=== PATIENT | female | born 1930 | race Caucasian/White ===

== ENCOUNTER → 2016-10-06 | Outpatient (CLI) | payer OTHER ==
[~2016-10-06] MED LIST: ANT125 PO; ATV5 SL; CALC-416 PO; CIPR-255 PO; GLIP10TA9 PO; MULT-589 PO; OCTR30KI6 IM; PANT1TAB48 PO; PRT/40 PO; SCOP1DIS14 TD; ULT50X PO; ZCR80 PO; [UNRECOGNIZED DRUG - CODE] SL
[2016-10-06 09:46] LABS: BASO % 0.2 %; BASO ABS # 0.02 K/uL (0-0.2); COMPLETE YES; EOS % 2.5 %; HEMATOCRIT 44.8 % (37-47); IG% 0.1 %; LYMPH % 32.8 %; LYMPH ABS # 2.94 K/uL (1.2-3.4); MEAN CELL VOLUME 99.1 fL (80-100); MEAN CORPUSCULAR HEMOGLOBIN 33.4 pg (25-34); MEAN CORPUSCULAR HGB CONC 33.7 g/dl (32-36); MEAN PLATELET VOLUME 10.9 fL (7.4-10.4); MONO % 5.8 %; NEUT % 58.6 %; PLATELET COUNT 152 K/uL (130-400); RED BLOOD COUNT 4.52 M/uL (4.2-5.4); WHITE BLOOD COUNT 8.95 K/uL (4.8-10.8)
[2016-10-06 10:10] LABS: ALT/SGPT 16 U/L (12-78); AST/SGOT 19 U/L (15-37); BLOOD UREA NITROGEN 17 mg/dl (7-18); BUN/CREATININE RATIO 17.1 (10-20); CALCIUM 8.8 mg/dl (8.5-10.1); CARBON DIOXIDE 29 mmol/L (21-32); CHLORIDE 105 mmol/L (98-107); GLUCOSE 62 mg/dl (70-99); POTASSIUM 3.4 mmol/L (3.5-5.1); SODIUM 144 mmol/L (136-145)
[2016-10-06 10:12] LABS: ESTIMATED AVERAGE GLUCOSE 128 mg/dl; HA1C FLAG Normal (Normal)
[2016-10-06 10:21] LABS: CHOLESTEROL 141 mg/dl (0-200); HDL CHOLESTEROL 71 mg/dl; LDL CHOLESTEROL CALCULATED 45 mg/dl; TRIGLYCERIDES 123 mg/dl (0-150); VERY LOW DENSITY LIPOPROT CALC 25 mg/dl
== END | disposition home or self-care (01) ==
LOC: C.LAB1850 08:00
PROVIDERS: ATTEND Internal Medicine
DX: E78.00 Pure hypercholesterolemia, unspecified (principal); E11.9 Type 2 diabetes mellitus without complications

== ENCOUNTER 2017-01-10 19:20 | Inpatient (IN) | payer OTHER ==
[~2017-01-10 19:20] MED LIST changes: -ATV5 SL; -OCTR30KI6 IM; +PANT40TA2 PO; -PRT/40 PO; -SCOP1DIS14 TD; +SNDI30 IM; -[UNRECOGNIZED DRUG - CODE] SL
[2017-01-10] MEDS ORDERED: SODIUM CHLORIDE 0.9% 1000ML 1,000 ML IV STA ×2 (20:15→21:08)
[2017-01-10 20:31] LABS: BASO % 0.1 %; BASO ABS # 0.01 K/uL (0-0.2); COMPLETE YES; HEMATOCRIT 39.7 % (37-47); IG% 0.4 %; LYMPH % 7.8 %; LYMPH ABS # 1.23 K/uL (1.2-3.4); MEAN CELL VOLUME 98.3 fL (80-100); MEAN CORPUSCULAR HEMOGLOBIN 33.7 pg (25-34); MEAN CORPUSCULAR HGB CONC 34.3 g/dl (32-36); MEAN PLATELET VOLUME 10.5 fL (7.4-10.4); MONO % 6.9 %; NEUT % 84.8 %; PLATELET COUNT 173 K/uL (130-400); RED BLOOD COUNT 4.04 M/uL (4.2-5.4); WHITE BLOOD COUNT 15.87 K/uL (4.8-10.8)
[2017-01-10 20:39] LABS: ALT/SGPT 150 U/L (12-78); AST/SGOT 101 U/L (15-37); BLOOD UREA NITROGEN 27 mg/dl (7-18); BUN/CREATININE RATIO 30.2 (10-20); CALCIUM 8.5 mg/dl (8.5-10.1); CARBON DIOXIDE 21 mmol/L (21-32); CHLORIDE 103 mmol/L (98-107); CREATININE 0.88 mg/dl (0.60-1.20); GLUCOSE 193 mg/dl (70-99); POTASSIUM 3.4 mmol/L (3.5-5.1); SODIUM 142 mmol/L (136-145)
[2017-01-10 20:41] LABS: INR 1.1 (0.9-1.1); PARTIAL THROMBOPLASTIN RATIO 1.3
[2017-01-10 20:47] LABS: URINE APPEARANCE CLEAR (CLEAR); URINE COLOR DK YELLOW; URINE EPITHELIAL CELL AUTO >30 /lpf (0-5); URINE NITRITE NEG (NEG); URINE PH 5.5 (4.5-7.5); URINE SPECIFIC GRAVITY 1.029 (1.000-1.030); UROBILINOGEN NEG (NEG); ZZURINE CULT IF INDIC CATH YES
[2017-01-10 20:50] LABS: MANUAL MICROSCOPIC REQUIRED? NO; REVIEW REQ? NO
[2017-01-10 20:51] LABS: URINE BILIRUBIN NEG (NEG)
[2017-01-10 20:51] LABS: ALKALINE PHOSPHATASE 297 U/L (45-117)
[2017-01-10] MEDS ORDERED: PIPERACILLIN/TAZOBACTAM 3.375 GM/100ML D5W IV STA (21:08)
--- NOTE | 2017-01-10 21:10 | DIAGNOSTIC IMAGING REPORT ---
CT OF THE HEAD WITHOUT CONTRAST CLINICAL HISTORY: Altered mental status. COMPARISON STUDY: Head CT April 23, 2015. CT DOSE: 1842.80 mGy.cm TECHNIQUE: Helical axial images of the head were obtained without IV contrast. Automated exposure control was utilized for the study. FINDINGS: No acute intracranial hemorrhage is present. There is extensive hypodensity with loss of zambrano-white differentiation within the right temporal, frontal and parietal lobes which suggests a large right MCA infarct. In addition, there is hypodensity within the right caudate nucleus. This is likely subacute to acute. There is minimal mass effect. 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 Basilar cisterns are patent. There are no extra-axial collections. There are no significant calvarial abnormalities. Small amount of fluid within the right mastoid air cells is noted. 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 No acute hemorrhage. Minimal mass effect. Findings discussed with Dr. Gallo at time of dictation. Electronically signed by: Alexi Angel M.D. 01/10/2017 9:08 PM Dictated Date/Time: 01/10/2017 8:58 PM
--- NOTE | 2017-01-10 21:12 | DIAGNOSTIC IMAGING REPORT ---
CHEST ONE VIEW PORTABLE CLINICAL HISTORY: Sepsis. Altered mental status. COMPARISON STUDY: Chest radiograph April 09, 2015. FINDINGS: Calcified right apical nodule is noted. Patient is rotated. Right perihilar masslike opacity is present. There is also left perihilar opacity. Diffuse interstitial thickening is noted. There is no pneumothorax or pleural effusion. IMPRESSION: 1. Right perihilar mass-like opacity. Given the clinical history, this could reflect pneumonia however a mass or lymphadenopathy could appear similar. Short-term radiographic follow up is recommended. 2. Suspected left perihilar opacity which can be assessed on subsequent chest radiographs. 3. Mild interstitial thickening. This could reflect mild pulmonary edema or interstitial lung disease. Electronically signed by: Alexi Angel M.D. 01/10/2017 9:11 PM Dictated Date/Time: 01/10/2017 9:09 PM
--- NOTE | 2017-01-10 21:37 | EMERGENCY ROOM VISIT NOTE ---
History Report prepared by Luz: Jass Sherman Under the Supervision of: Dr. Carlos Gallo M.D. First contact with patient: 20:02 Chief Complaint: ALTERED MENTAL STATUS Stated Complaint: SEPSIS Nursing Triage Summary: pt brought to main ED C12b by ALS from home where she lives alone and is checked on by family. ALS reports pt was seen by her son sitting/sleeping in the chair last night and again this morning and again this evening, son thought pt had not moved out of chair. when ALS arrived, pt was incontinent of urine and possible stool. ALS reports hx of UTI and last one in June, pt taken off low dose abx on the of last month. ALS reports pt was responsive only to pain of sternal rub. BSG prehospital 190. ALS reports pt tachy and BP 120s/50s. states son thought pt looked pale. ALS reports per son pt is normally A&O x4 and independent. upon arrival, pt is pale. dry mucous membranes and lips. pt has eyes open but has no verbal response. pt will withdraw to pain. lung clear and diminished in the bases. no edema in bilateral ankles. pt has been incontinent of urine, urine as strong odor. History of Present Illness The patient is a 86 year old female who presents to the Emergency Room by EMS with complaints of a constant altered mental status beginning today. Per grand daughter, the patient lives alone, and is routinely checked on by family. She states that the patient was found to be sleeping in a chair this morning after having been weak all day yesterday as well. She states that shortly prior to arrival, the patient was found to still be sleeping. Patient unable to give full ROS, though she denies pain nor falls. She has a history of UTIs with altered mental status which family notes this is similar to. HPI limited secondary to altered mental status. Further history limited. Source of History: patient, family (grand daughter) History Limited By: AMS Onset: Today Quality: other (altered mental status) Timing: constant Review of Systems See HPI for pertinent positives & negatives. A total of 10 systems reviewed and were otherwise negative. Past Medical & Surgical Medical Problems: (1) Altered mental status (2) Anticoagulated (3) Diabetes (4) DVT (deep venous thrombosis) (5) HTN (hypertension) Family History Diabetes mellitus Gallbladder disease Kidney stones Lung disease Social History Smoking Status: Unknown if Ever Smoked Drug Use: none Marital Status: Housing Status: lives alone Occupation Status: retired Current/Historical Medications Scheduled Calcium Carbonate-Vitamin D (Calcium 600+D3), 1 TAB PO DAILY Glipizide (Glucotrol), 10 MG PO BID Multivitamins (Daily Keven), 1 TAB PO DAILY Octreotide Acetate (Sandostatin [place]), 30 MG IM Q3WK Pantoprazole (Pantoprazole Sodium), 120 MG PO QAM Pantoprazole (Protonix), 80 MG PO QPM Simvastatin (Simvastatin), 80 MG PO HS Scheduled PRN Tramadol HCl (Tramadol HCl), 100 MG PO TID PRN for Pain Allergies Coded Allergies: Sulfa Drugs (Verified Allergy, Unknown, 02/24/16) Physical Exam Vital Signs Date Time Temp Pulse Resp B/P (MAP) Pulse Ox O2 Delivery O2 Flow Rate FiO2 01/11/17 01:10 95 18 163/78 98 Nasal Cannula 2.0 01/11/17 01:05 91 18 155/96 97 Nasal Cannula 2.0 01/11/17 01:00 85 18 158/70 96 Nasal Cannula 2.0 01/11/17 00:55 91 18 149/73 98 Nasal Cannula 2.0 01/11/17 00:50 93 18 156/91 96 Nasal Cannula 2.0 01/11/17 00:40 89 18 164/91 96 Nasal Cannula 2.0 01/11/17 00:35 92 18 150/75 95 Nasal Cannula 2.0 01/11/17 00:32 91 14 155/70 93 Nasal Cannula 2.0 01/11/17 00:25 95 18 161/92 96 Nasal Cannula 2.0 01/11/17 00:15 94 18 171/89 95 Nasal Cannula 2.0 01/11/17 00:00 91 18 158/118 95 Nasal Cannula 2.0 01/10/17 23:40 88 18 144/64 95 01/10/17 23:00 87 18 129/64 95 Room Air 01/10/17 22:30 88 18 154/61 95 Room Air 01/10/17 21:50 93 18 140/67 99 Room Air 01/10/17 21:20 94 18 133/72 100 Room Air 01/10/17 20:45 95 18 167/92 100 Room Air 01/10/17 20:07 96 01/10/17 20:02 102 14 127/89 93 Room Air 01/10/17 20:02 99 Room Air 01/10/17 19:25 37.3 104 14 147/84 98 Room Air Physical Exam GENERAL: Patient is chronically unwell appearing and severely dehydrated appearing. Strong smell of urine to patient HEENT: No acute trauma, normocephalic atraumatic, mucous membranes dry, no nasal congestion, no scleral icterus. NECK: No stridor, no adenopathy, no meningismus, trachea is midline. LUNGS: No dyspnea. Junky cough with diffuse crackles. HEART: Mild tachycardia. Systolic mild murmur, no rubs, gallops appreciated. ABDOMEN: Soft, nontender, bowel sounds positive, no masses appreciated, no peritonitis. BACK: No midline tenderness, no CVA tenderness EXTREMITIES: Unable to get assessment of movement due to AMS, no cyanosis, no edema. NEUROLOGIC: Confused/altered. Slurred simple speech. Unable to prefer CN due to ams SKIN: No rash, no jaundice, no diaphoresis. Poor skin turgor. Medical Decision & Procedures ER Provider Diagnostic Interpretation: X ray results are stated below per my interpretation and the radiologist's interpretation. CT results and stated below per my review and radiologist interpretation: CT OF THE HEAD WITHOUT CONTRAST FINDINGS: No acute intracranial hemorrhage is present. There is extensive hypodensity with loss of zambrano-white differentiation within the right temporal, frontal and parietal lobes which suggests a large right MCA infarct. In addition, there is hypodensity within the right caudate nucleus. This is likely subacute to acute. There is minimal mass effect. 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 Basilar cisterns are patent. There are no extra-axial collections. There are no significant calvarial abnormalities. Small amount of fluid within the right mastoid air cells is noted. 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 No acute hemorrhage. Minimal mass effect. Findings discussed with Dr. Gallo at time of dictation. Electronically signed by: Alexi Angel M.D. CHEST ONE VIEW PORTABLE FINDINGS: Calcified right apical nodule is noted. Patient is rotated. Right perihilar masslike opacity is present. There is also left perihilar opacity. Diffuse interstitial thickening is noted. There is no pneumothorax or pleural effusion. IMPRESSION: 1. Right perihilar mass-like opacity. Given the clinical history, this could reflect pneumonia however a mass or lymphadenopathy could appear similar. Short-term radiographic follow up is recommended. 2. Suspected left perihilar opacity which can be assessed on subsequent chest radiographs. 3. Mild interstitial thickening. This could reflect mild pulmonary edema or interstitial lung disease. Electronically signed by: Alexi Angel M.D. Laboratory Results 01/10/17 18:54 Red Blood Count 4.04, Mean Corpuscular Volume 98.3, Mean Corpuscular Hemoglobin 33.7, Mean Corpuscular Hemoglobin Concent 34.3, Mean Platelet Volume 10.5, Neutrophils (%) (Auto) 84.8, Lymphocytes (%) (Auto) 7.8, Monocytes (%) (Auto) 6.9, Eosinophils (%) (Auto) 0.0, Basophils (%) (Auto) 0.1, Neutrophils # (Auto) 13.47, Lymphocytes # (Auto) 1.23, Monocytes # (Auto) 1.10, Eosinophils # (Auto) 0.00, Basophils # (Auto) 0.01 01/10/17 18:54 Test 01/10/17 18:54 01/10/17 19:39 01/10/17 20:59 01/11/17 01:00 White Blood Count 15.87 K/uL (4.8-10.8) Red Blood Count 4.04 M/uL (4.2-5.4) Hemoglobin 13.6 g/dL (12.0-16.0) Hematocrit 39.7 % (37-47) Mean Corpuscular Volume 98.3 fL (80-100) Mean Corpuscular Hemoglobin 33.7 pg (25-34) Mean Corpuscular Hemoglobin Concent 34.3 g/dl (32-36) Platelet Count 173 K/uL (130-400) Mean Platelet Volume 10.5 fL (7.4-10.4) Neutrophils (%) (Auto) 84.8 % Lymphocytes (%) (Auto) 7.8 % Monocytes (%) (Auto) 6.9 % Eosinophils (%) (Auto) 0.0 % Basophils (%) (Auto) 0.1 % Neutrophils # (Auto) 13.47 K/uL (1.4-6.5) Lymphocytes # (Auto) 1.23 K/uL (1.2-3.4) Monocytes # (Auto) 1.10 K/uL (0.11-0.59) Eosinophils # (Auto) 0.00 K/uL (0-0.5) Basophils # (Auto) 0.01 K/uL (0-0.2) RDW Standard Deviation 49.0 fL (36.4-46.3) RDW Coefficient of Variation 13.7 % (11.5-14.5) Immature Granulocyte % (Auto) 0.4 % Immature Granulocyte # (Auto) 0.06 K/uL (0.00-0.02) Prothrombin Time 12.0 SECONDS (9.0-12.0) Prothromb Time International Ratio 1.1 (0.9-1.1) Activated Partial Thromboplast Time 33.6 SECONDS (21.0-31.0) Partial Thromboplastin Ratio 1.3 Anion Gap 18.0 mmol/L (3-11) Estimated GFR () 69.9 Estimated GFR (Non- 60.3 BUN/Creatinine Ratio 30.2 (10-20) Calcium Level 8.5 mg/dl (8.5-10.1) Total Bilirubin 1.4 mg/dl (0.2-1) Direct Bilirubin 0.8 mg/dl (0-0.2) Aspartate Amino Transf (AST/SGOT) 101 U/L (15-37) Alanine Aminotransferase (ALT/SGPT) 150 U/L (12-78) Alkaline Phosphatase 297 U/L (45-117) Troponin I 0.098 ng/ml (0-0.045) Total Protein 7.3 gm/dl (6.4-8.2) Albumin 2.8 gm/dl (3.4-5.0) Urine Color DK YELLOW Urine Appearance CLEAR (CLEAR) Urine pH 5.5 (4.5-7.5) Urine Specific Scott 1.029 (1.000-1.030) Urine Protein 1+ (NEG) Urine Glucose (UA) NEG (NEG) Urine Ketones 4+ (NEG) Urine Occult Blood NEG (NEG) Urine Nitrite NEG (NEG) Urine Bilirubin NEG (NEG) Urine Urobilinogen NEG (NEG) Urine Leukocyte Esterase NEG (NEG) Urine WBC (Auto) 1-5 /hpf (0-5) Urine RBC (Auto) 0-4 /hpf (0-4) Urine Hyaline Casts (Auto) 5-10 /lpf (0-5) Urine Epithelial Cells (Auto) >30 /lpf (0-5) Urine Bacteria (Auto) 1+ (NEG) Bedside Lactic Acid Venous 2.87 mmol/L (0.90-1.70) Laboratory results as reviewed by me. Medications Administered Medications (Trade) Dose Ordered Sig/Kevin Route Start Time Stop Time Status Last Admin Dose Admin Sodium Chloride 1,000 ml @ 999 mls/hr Q1H1M STAT IV 01/10/17 20:15 01/10/17 21:15 DC 01/10/17 20:45 999 MLS/HR Sodium Chloride 1,000 ml @ 999 mls/hr Q1H1M STAT IV 01/10/17 21:08 01/10/17 22:08 DC 01/10/17 21:49 999 MLS/HR Piperacillin Sod/ Tazobactam Sod (Zosyn Iv) 3.375 gm NOW STAT IV 01/10/17 21:08 01/10/17 21:09 DC 01/10/17 21:47 3.375 GM ECG Indication: altered mental status Rate (beats per minute): 104 Rhythm: sinus tachycardia Findings: no ectopy, other (bifascicular block) ED Course 2012: The patient was evaluated in room C12B. A complete history and physical exam was performed. 2014: Ordered Sodium Chloride 1000 mL @ 999 mL/hr IV. 2107: Ordered Zosyn 3.375 gm IV, Sodium Chloride 1000 mL @ 999 mL/hr IV. 2130: Upon reevaluation, the patient is resting comfortably. Discussed results and treatment plan with the patient. Her family verbalized understanding and agreement with the treatment plan. The patient will be evaluated for further management. Medical Decision Differential: Toxicological, Infectious, Stroke, SAH, Trauma, Electrolyte Abnormality, Hypoglycemia, Alcohol Intoxication, Drug Intoxication, Cardiac Abnormality, Sepsis, Meningitis/Encephalitis, Trauma, Excited Delirium, Serotonin Syndrome, Psychiatric, amongst other pathologies entertained. 86 yr old female arrives altered, severely dehydrated, and with generalized weakness. She is severely ill appearing and essentially obtunded. IV fluids given and is a bit better appearing. Large CVA noted on CT head which I suspect was from last few days though clearly she is not TPA candidate. WBC elevation. No fever though clearly is septic which is likely lung source. Would be a bit concerned there is underlying mass, though with multiple other issues will defer to hospitalist regarding further imaging of chest as not hypotensive nor hypoxic at this time. Stable, breathing comfortably with periodic cough. She is severely ill and requires coming in to hospital. Lactic acidosis. 30 ml/kg fluids given. Zosyn given as she has prolonged qtc and this is concerning for aspiration pneumonia. With fluid resus she is more awake and now stroke findings are much more evident. After patient admission by hospitalist she was taken to CT for chest eval. technician noted dissection, called me and I requested study continue through abdomen as well. Patient brought back to B1. Moderately ypertensive though HR has been improving. HTN initially was allowed due to stroke though with dissection now there is issue with either treating or not treating (dissect further vs hypoperfusion brain). Dr Pedersen and I discussed this at length. His team contacted Cardio[facility]acic surg at [facility] [place] who agree that this dissection and her multiple other symptoms mean she is not surgical candidate. In mean time radiology called to make aware of diffuse dissections with hemopericardium/ hemomediastinum. Dr Pedersen spoke with son/daughter(POA) and after reviewing all of this they agree to comfort care. Dr Pedersen and I both agree with this as well. On multiple re-evals patient sleeping and in no distress. Consults Time Called: 2117 Consulting Physician: Dr. Pedersen [place] [place] Returned Call: 2130 Discussed the patient's case. The patient will be evaluated for further treatment and disposition. Impression Primary Impression: Altered mental status Additional Impressions: Sepsis Stroke Pneumonia Lung mass Dissection of thoracoabdominal aorta Critical Care I have personally spent greater than 35 minutes of critical care time in the direct management of this patient. This was a life/limb threatening event. This includes time spent evaluating patient, direct bedside care, chart review, placing orders, interpretation of diagnostic studies, discussion with consultants, patient, and family members, as well as other required patient management activities. This 35 minutes is in excess of all separately billable procedures. Scribe Attestation The scribe's documentation has been prepared under my direction and personally reviewed by me in its entirety. I confirm that the note above accurately reflects all work, treatment, procedures, and medical decision making performed by me. Departure Information Dispostion Being Evaluated By Hospitalist Referrals Eldon Valdivia M.D. (PCP) Patient Instructions My [facility] Stroke History Time Last Known Well 3 days ago Stroke t-PA Criteria Reviewed Does NOT meet criteria for t-PA Reason t-PA Not Given Treatment not indicated Problem Qualifiers
[2017-01-10] MEDS ORDERED: SODIUM CHLORIDE 0.9% 1000ML 1,000 ML IV SCH (22:31)
[2017-01-10] MEDS ORDERED: ACETAMINOPHEN 325 MG TAB PO PRN (22:45)
[2017-01-10] MEDS ORDERED: ONDANSETRON INJ 2 MG/ML 2 ML VIAL IV PRN (22:45)
[2017-01-10] MEDS ORDERED: PHARMACIST DISCHARGE MED REC CONSULT PRN (22:45)
[2017-01-10] MEDS ORDERED: POLYETHYLENE (MIRALAX) 17 GM PACK PO PRN (22:45)
[2017-01-10] MEDS ORDERED: OPTIRAY 320 IV PRN (23:15)
--- NOTE | 2017-01-10 23:29 | History and Physical ---
History & Physical Date & Time of Service: Jan 10, 2017 at 23:03 Chief Complaint: Sepsis Primary Care Physician: Eldon Valdivia M.D. 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 The patient was last well known yesterday and her son went to check on her this morning she was sleeping and when he went back in the evening she was found to be unresponsive. The patient is independent at baseline and lives alone and her family checks on her periodically. She had complained about headache and nausea yesterday and had about 2 episodes of vomiting per family. They denied any fevers or chills. The patient is a current smoker and smokes about half a pack per day. Past Medical/Surgical History Medical Problems: (1) Anticoagulated Status: Chronic (2) Diabetes Status: Chronic (3) DVT (deep venous thrombosis) Status: Resolved (4) HTN (hypertension) Status: Chronic Family History Diabetes mellitus Gallbladder disease Kidney stones Lung disease Social History Smoking Status: Unknown if Ever Smoked Drug Use: none Marital Status: Housing status: lives with family Occupational Status: retired Immunizations History of Influenza Vaccine: Yes Influenza Vaccine Date: Aug 06, 2009 History of Tetanus Vaccine?: Unknown History of Pneumococcal: Yes Pneumococcal Date: Nov 22, 2008 History of Hepatitis B Vaccine: Yes Multi-Drug Resistant Organisms History of MDRO: No Allergies Coded Allergies: Sulfa Drugs (Verified Allergy, Unknown, 02/24/16) Home Medications Scheduled Calcium Carbonate-Vitamin D (Calcium 600+D3), 1 TAB PO DAILY Glipizide (Glucotrol), 10 MG PO BID Multivitamins (Daily Keven), 1 TAB PO DAILY Octreotide Acetate (Sandostatin [place]), 30 MG IM Q3WK Pantoprazole (Pantoprazole Sodium), 120 MG PO QAM Pantoprazole (Protonix), 80 MG PO QPM Simvastatin (Simvastatin), 80 MG PO HS Scheduled PRN Tramadol HCl (Tramadol HCl), 100 MG PO TID PRN for Pain Review of Systems Unable to obtain as patient is oriented to self only. she however denies any pain. Neurologic: + problem reported (unresponsive earlier this evening) Physical Exam Vital Signs Date Time Temp Pulse Resp B/P (MAP) Pulse Ox O2 Delivery O2 Flow Rate FiO2 01/10/17 22:30 88 18 154/61 95 Room Air 01/10/17 21:50 93 18 140/67 99 Room Air 01/10/17 21:20 94 18 133/72 100 Room Air 01/10/17 20:45 95 18 167/92 100 Room Air 01/10/17 20:07 96 01/10/17 20:02 102 14 127/89 93 Room Air 01/10/17 20:02 99 Room Air 01/10/17 19:25 37.3 104 14 147/84 98 Room Air General Appearance: WD/WN, no apparent distress Head: normocephalic ENT: normal ENT inspection, hearing grossly normal Neck: supple Respiratory/Chest: no respiratory distress, no accessory muscle use, + rhonchi Cardiovascular: + tachycardia Abdomen/GI: normal bowel sounds, non tender, soft Neurologic/Psych: alert, + motor weakness (LUE and LLE motor weakness ), + pertinent finding (Right UE flexion and stiff) Diagnostics Laboratory Results Results Past 24 Hours Test 01/10/17 18:54 01/10/17 19:39 01/10/17 20:59 Range/Units White Blood Count 15.87 4.8-10.8 K/uL Red Blood Count 4.04 4.2-5.4 M/uL Hemoglobin 13.6 12.0-16.0 g/dL Hematocrit 39.7 37-47 % Mean Corpuscular Volume 98.3 80-100 fL Mean Corpuscular Hemoglobin 33.7 25-34 pg Mean Corpuscular Hemoglobin Concent 34.3 32-36 g/dl Platelet Count 173 130-400 K/uL Mean Platelet Volume 10.5 7.4-10.4 fL Neutrophils (%) (Auto) 84.8 % Lymphocytes (%) (Auto) 7.8 % Monocytes (%) (Auto) 6.9 % Eosinophils (%) (Auto) 0.0 % Basophils (%) (Auto) 0.1 % Neutrophils # (Auto) 13.47 1.4-6.5 K/uL Lymphocytes # (Auto) 1.23 1.2-3.4 K/uL Monocytes # (Auto) 1.10 0.11-0.59 K/uL Eosinophils # (Auto) 0.00 0-0.5 K/uL Basophils # (Auto) 0.01 0-0.2 K/uL RDW Standard Deviation 49.0 36.4-46.3 fL RDW Coefficient of Variation 13.7 11.5-14.5 % Immature Granulocyte % (Auto) 0.4 % Immature Granulocyte # (Auto) 0.06 0.00-0.02 K/uL Prothrombin Time 12.0 9.0-12.0 SECONDS Prothromb Time International Ratio 1.1 0.9-1.1 Activated Partial Thromboplast Time 33.6 21.0-31.0 SECONDS Partial Thromboplastin Ratio 1.3 Sodium Level 142 136-145 mmol/L Potassium Level 3.4 3.5-5.1 mmol/L Chloride Level 103 98-107 mmol/L Carbon Dioxide Level 21 21-32 mmol/L Anion Gap 18.0 3-11 mmol/L Blood Urea Nitrogen 27 7-18 mg/dl Creatinine 0.88 0.60-1.20 mg/dl Estimated GFR () 69.9 Estimated GFR (Non- 60.3 BUN/Creatinine Ratio 30.2 10-20 Random Glucose 193 70-99 mg/dl Calcium Level 8.5 8.5-10.1 mg/dl Total Bilirubin 1.4 0.2-1 mg/dl Direct Bilirubin 0.8 0-0.2 mg/dl Aspartate Amino Transf (AST/SGOT) 101 15-37 U/L Alanine Aminotransferase (ALT/SGPT) 150 12-78 U/L Alkaline Phosphatase 297 45-117 U/L Troponin I 0.098 0-0.045 ng/ml Total Protein 7.3 6.4-8.2 gm/dl Albumin 2.8 3.4-5.0 gm/dl Urine Color DK YELLOW Urine Appearance CLEAR CLEAR Urine pH 5.5 4.5-7.5 Urine Specific [place] 1.029 1.000-1.030 Urine Protein 1+ NEG Urine Glucose (UA) NEG NEG Urine Ketones 4+ NEG Urine Occult Blood NEG NEG Urine Nitrite NEG NEG Urine Bilirubin NEG NEG Urine Urobilinogen NEG NEG Urine Leukocyte Esterase NEG NEG Urine WBC (Auto) 1-5 0-5 /hpf Urine RBC (Auto) 0-4 0-4 /hpf Urine Hyaline Casts (Auto) 5-10 0-5 /lpf Urine Epithelial Cells (Auto) >30 0-5 /lpf Urine Bacteria (Auto) 1+ NEG Bedside Lactic Acid Venous 2.87 0.90-1.70 mmol/L Microbiology Results 01/10/17 Blood Culture, Received Pending 01/10/17 Blood Culture, Received Pending 01/10/17 Urine Culture, Received Pending Diagnostic Radiology [~ rep ct add3]] CT OF THE HEAD WITHOUT CONTRAST CLINICAL HISTORY: Altered mental status. COMPARISON STUDY: Head CT April 23, 2015. CT DOSE: 1842.80 mGy.cm TECHNIQUE: Helical axial images of the head were obtained without IV contrast. Automated exposure control was utilized for the study. FINDINGS: No acute intracranial hemorrhage is present. There is extensive hypodensity with loss of zambrano-white differentiation within the right temporal, frontal and parietal lobes which suggests a large right MCA infarct. In addition, there is hypodensity within the right caudate nucleus. This is likely subacute to acute. There is minimal mass effect. 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 Basilar cisterns are patent. There are no extra-axial collections. There are no significant calvarial abnormalities. Small amount of fluid within the right mastoid air cells is noted. 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 No acute hemorrhage. Minimal mass effect. Findings discussed with Dr. Gallo at time of dictation. Electronically signed by: Alexi Angel M.D. 01/10/2017 9:08 PM Dictated Date/Time: 01/10/2017 8:58 PM CHEST ONE VIEW PORTABLE CLINICAL HISTORY: Sepsis. Altered mental status. COMPARISON STUDY: Chest radiograph April 09, 2015. FINDINGS: Calcified right apical nodule is noted. Patient is rotated. Right perihilar masslike opacity is present. There is also left perihilar opacity. Diffuse interstitial thickening is noted. There is no pneumothorax or pleural effusion. IMPRESSION: 1. Right perihilar mass-like opacity. Given the clinical history, this could reflect pneumonia however a mass or lymphadenopathy could appear similar. Short-term radiographic follow up is recommended. 2. Suspected left perihilar opacity which can be assessed on subsequent chest radiographs. 3. Mild interstitial thickening. This could reflect mild pulmonary edema or interstitial lung disease. Impression Assessment and Plan 79-year-old female with past medical history of diabetes, hypertension, DVT, Malissa- Lozano syndrome , chronic smoker was brought to the ER via ALS after she was found unresponsive. Her last normal time was at 11 PM last night. Her son had checked on her this morning but she was sleeping so he went to check on her later in the evening at which time she would not respond to verbal stimuli and hence was brought to the ER. 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 Chest x-ray was concerning for right perihilar opacity likely secondary to a mass or pneumonia or lymph nodes. A CT chest was ordered for further evaluation of the right perihilar opacity concerning for a lung mass but she was noted to have a type A thoracic aortic dissection extending from the aortic root to the level of the renal arteries. The dissection extended into the arch vessels with a dissection flap visible in the bilateral common carotid arteries. The family was notified of the CT chest results and they wanted an opinion by cardiothoracic surgery. A call was placed to [facility] who recommended that she would not be a candidate for surgery considering her age and stroke findings on the CT. This was relayed back to the family and after explaining her current prognosis, decision was made by the power of criminal defense attorney ,her daughter to initiate comfort measures only. She would be admitted to [facility] for comfort measures only. - Pain control with morphine every 3 hours as needed - Palliative consult - Scopolamine patch,glycopyrrolate drops as needed DO NOT RESUSCITATE Resident Physician Supervision Note: Pt seen/examined independently. I discussed the case with the resident and agree with the findings and plan as documented in the note. Any exceptions or clarifications are listed here: 86 y/o F presented with AMS and evidence of R CVA CVA was confirmed on imaging Pt had an abnormal CXR which was suspicious for a mass. She was sent for a CT chest which unfortunately revealed a substantial type A aortic dissection which extends into both carotid arteries. This is likely the cause of her CVA. I personally discussed the findings with family. We sought an opinion from the thoracic surgical service at [facility] who confirmed that the pt is not a surgical candidate. This was then discussed with family including the pts daughter / POA. As no good treatment options were present, the pt was placed on comfort measures with agreement of family. OE Poorly responsive - appears to understand simple commands S1,2 R Limited lung exam due to poor effort and lrg air noises NT, ND Could not cooperate with neuro exam - facial asymmetry and likley neglect are present P: As above pt will be treated with comfort measures per family instruction Documented By: Eyal Pedersen Level of Care Med/Surg Resuscitation Status DO NOT RESUSCITATE VTE Prophylaxis VTE Risk Assessment Done? Y/N: Yes Risk Level: Moderate Resident Tracking Resident Involvement: Resident Care Provided Care Provided: Adult Hospital Medicine
[2017-01-11] MEDS ORDERED: GLYCOPYRROLATE INJ 0.2 MG/ML VIAL IV PRN (01:30)
[2017-01-11] MEDS ORDERED: ONDANSETRON INJ 2 MG/ML 2 ML VIAL IV PRN (01:30)
[2017-01-11] MEDS: MoRPHine SULFATE 4 MG/ML 1 ML CARP\\VIAL IV PRN ×3 (01:33→20:26)
[2017-01-11 02:00] VITALS: BP 120/74; PULSE 111; TEMP 36.4; O2SAT 97
[2017-01-11] MEDS ORDERED: SCOPOLAMINE 1.5 MG TDSY TD SCH (02:00)
[2017-01-11 05:47] LABS: ESTIMATED AVERAGE GLUCOSE 140 mg/dl; HA1C FLAG Normal (Normal)
--- NOTE | 2017-01-11 07:08 | DIAGNOSTIC IMAGING REPORT ---
CT OF THE CHEST WITH IV CONTRAST CLINICAL HISTORY: Abnormal chest x-ray. Right perihilar mass. COMPARISON STUDY: Chest x-ray dated 01/10/2017 TECHNIQUE: Following the IV administration of 118 mL of Optiray-320, CT of the thorax was performed from the thoracic inlet to the lung bases. Images are reviewed in the axial, sagittal, and coronal planes. IV contrast was administered without complication. CT DOSE: 806.03 mGy.cm FINDINGS: Thyroid: Imaged portions of the thyroid gland are normal in appearance. Thoracic aorta: There is a type A thoracic aortic dissection which extends to the level of the aortic root. The dissection extends to visualize level of the upper abdominal aorta. There is compression of the true lumen within the lower thoracic aorta. The dissection extends into the left subclavian artery, left common carotid artery, and right innominate artery. Dissection flaps are visualized within both common carotid arteries. There is a small based on a hematoma. There is a trace pericardial effusion. Pulmonary vasculature: The pulmonary trunk is normal in caliber. There are no central filling defects identified to suggest pulmonary embolus. Note that this examination was not protocoled for the evaluation of pulmonary emboli. HEART: The heart is the upper limits of normal in size. There is a trace pericardial effusion. There are coronary artery calcifications. Lungs and pleural spaces: There is pulmonary emphysema. There are dependent atelectatic changes. The study is somewhat limited due to respiratory motion artifact. There is underlying pulmonary fibrotic change. There is a calcified right apical granuloma. Mediastinum: There is a mildly enlarged 12 mm precarinal lymph node. There is a small mediastinal hematoma. Amanda: Hilar lymph nodes are the upper limits of normal in size. Axilla: There is no evidence of pathologic axillary lymphadenopathy Upper abdomen: There is intra and extrahepatic biliary ductal dilatation. Skeletal structures: There is a prominent T7-8 disc osteophyte complex. IMPRESSION: 1. Type A thoracic aortic dissection extending from the aortic root to the visualized level of the upper abdominal aorta. The dissection extends into the 3 arch vessels. Dissection flaps are visualized within both common carotid arteries. The right coronary artery likely arises from the false lumen. There is compression of the true lumen within the distal thoracic aorta. There is a small mediastinal hematoma. Electronically signed by: Sheldon Arriaga M.D. 01/11/2017 7:07 AM Dictated Date/Time: 01/11/2017 6:58 AM
[2017-01-11] MEDS: CHECK SCOPOLAMINE PATCH PLACEMENT SCH ×2 (07:54→16:09)
--- NOTE | 2017-01-11 08:09 | DIAGNOSTIC IMAGING REPORT ---
CT ABD/PELVIS IV CONTRAST ONLY CLINICAL HISTORY: Lower abdominal pain. Bloody stools. Thoracic aortic dissection. COMPARISON STUDY: 02/24/2016 TECHNIQUE: Following the IV administration of 91 mL of Optiray-320, CT scan of the abdomen and pelvis was performed from the lung bases to the proximal femurs. Images are reviewed in the axial, sagittal, and coronal planes. IV contrast was administered without complication. CT DOSE: FINDINGS: Lower chest: There is a trace pericardial effusion. There are bibasal atelectatic changes. Liver: There is persistent intra and extrahepatic biliary ductal dilatation. There is a 14 mm enhancing subcapsular nodule within the anterior left lobe. There is a suspected filling defect with thin the common hepatic duct. Gallbladder: Not visualized and presumed surgically absent Spleen: Normal in size and attenuation. Pancreas: Unremarkable. Adrenal glands: There is bilateral adrenal gland thickening similar to the prior study Kidneys: There are stable renal cysts the largest of which is located on the left measuring 15 mm. There is no hydronephrosis. Bowel: There are no transition zones to indicate bowel obstruction. There is colonic diverticulosis. There are no acute peridiverticular inflammatory changes. There is diffuse gastric wall thickening. Peritoneum: There is no intraperitoneal free air or abdominal ascites. Vasculature: There is a dissection of the lower thoracic and upper abdominal aorta. The celiac artery appears to arise from the true lumen. The superior mesenteric artery also arises from the true lumen. There is extensive atheromatous calcification at the level of the renal artery origins. The dissection flap is not visualized distal to the renal arteries. Adenopathy: None. Pelvic viscera: The bladder is decompressed secondary to a Chow catheter. The uterus appears surgically absent. Skeletal structures: No destructive osseous lesions are seen. IMPRESSION: 1. Aortic dissection extends to the level of the renal arteries. The kidneys enhance normally. The superior mesenteric and celiac arteries appear to arise from the true lumen 2. Gastric wall thickening with abnormally diminished gastric enhancement visualized on the accompanying chest CT. The right gastric artery likely arises from the false lumen of the aortic dissection 3. No evidence of bowel obstruction. No evidence of free air 4. Intra and extrahepatic biliary ductal dilatation. Filling defect within the common hepatic duct. 5. 14 mm enhancing subcapsular nodule within the anterior left lobe of the liver Electronically signed by: Sheldon Arriaga M.D. 01/11/2017 8:08 AM Dictated Date/Time: 01/11/2017 7:57 AM
[2017-01-11] MEDS ORDERED: ASPIRIN 81 MG ECTAB PO SCH (09:00)
--- NOTE | 2017-01-11 09:47 | Hospitalist Progress Note ---
Hospitalist Progress Note Date of Service Jan 11, 2017. Subjective Pt evaluation today including: conversation w/ family Pt opened right eye to verbal and tactile stim only briefly but otherwise unresponsive. Appears comfortable Additional Comments: unobtainable Objective Vital Signs Date Time Temp Pulse Resp B/P (MAP) Pulse Ox O2 Delivery O2 Flow Rate FiO2 01/11/17 02:00 36.4 111 20 120/74 97 Room Air 01/11/17 01:49 109 18 157/84 93 01/11/17 01:38 105 18 157/84 96 Nasal Cannula 2.0 01/11/17 01:30 107 18 164/107 95 Nasal Cannula 2.0 01/11/17 01:27 105 18 165/82 97 Nasal Cannula 2.0 01/11/17 01:17 98 14 152/98 98 Nasal Cannula 2.0 01/11/17 01:10 95 18 163/78 98 Nasal Cannula 2.0 01/11/17 01:05 91 18 155/96 97 Nasal Cannula 2.0 01/11/17 01:00 85 18 158/70 96 Nasal Cannula 2.0 01/11/17 00:55 91 18 149/73 98 Nasal Cannula 2.0 01/11/17 00:50 93 18 156/91 96 Nasal Cannula 2.0 01/11/17 00:40 89 18 164/91 96 Nasal Cannula 2.0 01/11/17 00:35 92 18 150/75 95 Nasal Cannula 2.0 01/11/17 00:32 91 14 155/70 93 Nasal Cannula 2.0 01/11/17 00:25 95 18 161/92 96 Nasal Cannula 2.0 01/11/17 00:15 94 18 171/89 95 Nasal Cannula 2.0 01/11/17 00:00 91 18 158/118 95 Nasal Cannula 2.0 01/10/17 23:40 88 18 144/64 95 01/10/17 23:00 87 18 129/64 95 Room Air 01/10/17 22:30 88 18 154/61 95 Room Air 01/10/17 21:50 93 18 140/67 99 Room Air 01/10/17 21:20 94 18 133/72 100 Room Air 01/10/17 20:45 95 18 167/92 100 Room Air 01/10/17 20:07 96 01/10/17 20:02 102 14 127/89 93 Room Air 01/10/17 20:02 99 Room Air 01/10/17 19:25 37.3 104 14 147/84 98 Room Air Physical Exam General Appearance: no apparent distress, + pertinent finding (frail appearing , lying in bed, some brief pauses in breathing at times, minimally reactive to verbal and tactile stim) Eyes: + pertinent finding (left facial weakness, opens right eyelid only to stimulus, PERRL) ENT: + pertinent finding (dry mucus membranes) Neck: trachea midline Respiratory/Chest: lungs clear, no respiratory distress, no accessory muscle use Cardiovascular: no edema, no murmur, + tachycardia (and regular) Abdomen: normal bowel sounds, non tender, soft, + pertinent finding ( incisional scar RUQ with drain scar at lateral portion) Extremities: non-tender, no pedal edema, + pertinent finding (warm, + significant onychomycosis toenails builat) Neurologic/Psychiatric: + facial droop (on left), + motor weakness (left hemiparesis), + pertinent finding (minimally responsive) Skin: normal color, warm/dry Laboratory Results Last 24 Hours Test 01/10/17 18:54 01/10/17 19:39 01/10/17 20:59 White Blood Count 15.87 K/uL Red Blood Count 4.04 M/uL Hemoglobin 13.6 g/dL Hematocrit 39.7 % Mean Corpuscular Volume 98.3 fL Mean Corpuscular Hemoglobin 33.7 pg Mean Corpuscular Hemoglobin Concent 34.3 g/dl Platelet Count 173 K/uL Mean Platelet Volume 10.5 fL Neutrophils (%) (Auto) 84.8 % Lymphocytes (%) (Auto) 7.8 % Monocytes (%) (Auto) 6.9 % Eosinophils (%) (Auto) 0.0 % Basophils (%) (Auto) 0.1 % Neutrophils # (Auto) 13.47 K/uL Lymphocytes # (Auto) 1.23 K/uL Monocytes # (Auto) 1.10 K/uL Eosinophils # (Auto) 0.00 K/uL Basophils # (Auto) 0.01 K/uL RDW Standard Deviation 49.0 fL RDW Coefficient of Variation 13.7 % Immature Granulocyte % (Auto) 0.4 % Immature Granulocyte # (Auto) 0.06 K/uL Prothrombin Time 12.0 SECONDS Prothromb Time International Ratio 1.1 Activated Partial Thromboplast Time 33.6 SECONDS Partial Thromboplastin Ratio 1.3 Sodium Level 142 mmol/L Potassium Level 3.4 mmol/L Chloride Level 103 mmol/L Carbon Dioxide Level 21 mmol/L Anion Gap 18.0 mmol/L Blood Urea Nitrogen 27 mg/dl Creatinine 0.88 mg/dl Estimated GFR () 69.9 Estimated GFR (Non- 60.3 BUN/Creatinine Ratio 30.2 Random Glucose 193 mg/dl Estimated Average Glucose 140 mg/dl Hemoglobin A1c 6.5 % Calcium Level 8.5 mg/dl Total Bilirubin 1.4 mg/dl Direct Bilirubin 0.8 mg/dl Aspartate Amino Transf (AST/SGOT) 101 U/L Alanine Aminotransferase (ALT/SGPT) 150 U/L Alkaline Phosphatase 297 U/L Troponin I 0.098 ng/ml Total Protein 7.3 gm/dl Albumin 2.8 gm/dl Urine Color DK YELLOW Urine Appearance CLEAR Urine pH 5.5 Urine Specific [place] 1.029 Urine Protein 1+ Urine Glucose (UA) NEG Urine Ketones 4+ Urine Occult Blood NEG Urine Nitrite NEG Urine Bilirubin NEG Urine Urobilinogen NEG Urine Leukocyte Esterase NEG Urine WBC (Auto) 1-5 /hpf Urine RBC (Auto) 0-4 /hpf Urine Hyaline Casts (Auto) 5-10 /lpf Urine Epithelial Cells (Auto) >30 /lpf Urine Bacteria (Auto) 1+ Bedside Lactic Acid Venous 2.87 mmol/L Assessment and Plan 79-year-old female with past medical history of diabetes, hypertension, DVT, Adriana- Vargas syndrome , chronic smoker was brought to the ER via ALS after she was found unresponsive. Her last normal time was at 11 PM last night. Her son had checked on her this morning but she was sleeping so he went to check on her later in the evening at which time she would not respond to verbal stimuli and hence was brought to the ER. 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 Chest x-ray was concerning for right perihilar opacity likely secondary to a mass or pneumonia or lymph nodes. A CT chest was ordered for further evaluation of the right perihilar opacity concerning for a lung mass but she was noted to have a type A thoracic aortic dissection extending from the aortic root to the level of the renal arteries. The dissection extended into the arch vessels with a dissection flap visible in the bilateral common carotid arteries. The family was notified of the CT chest results and they wanted an opinion by cardiothoracic surgery. A call was placed to [facility] who recommended that she would not be a candidate for surgery considering her age and stroke findings on the CT. This was relayed back to the family and after explaining her current prognosis, decision was made by the power of regulatory attorney ,her daughter to initiate comfort measures only. She would be admitted to [facility] for comfort measures only. Continues to be minimally responsive, with flaccid paresis on left side, very poor prognosis. Appears comfortable though. Appearance of decreased blood flow to stomach on CT abd secondary to dissection of aorta-at risk for gastric perforation and pain from that with sepsis. At high risk for brainstem herniation from cerebral edema, also for hemorrhagic conversion of CVA - Pain control with morphine every 3 hours as needed - Palliative consult - Scopolamine patch,glycopyrrolate drops as needed Discussed case with son Valentino on phone today who agreed with plan of care, no questions at this time. DO NOT RESUSCITATE
[2017-01-11] MEDS ORDERED: LORAZEPAM INJ 1 MG in SYRINGE 0.5 ML IV PRN (10:00)
[2017-01-11] MEDS ORDERED: LORAZEPAM 2 MG/ML 1 ML VIAL IV PRN (10:00)
[2017-01-11] MEDS ORDERED: SIMVASTATIN 80 MG TAB PO SCH (21:00)
[2017-01-12] MEDS ORDERED: MICONAZOLE NITRATE POWDER 43 GM ONE (02:15)
[2017-01-12] MEDS: CHECK SCOPOLAMINE PATCH PLACEMENT SCH ×3 (08:21→16:51)
--- NOTE | 2017-01-12 20:26 | Hospitalist Progress Note ---
Hospitalist Progress Note Date of Service Jan 12, 2017. Subjective Pt evaluation today including: conversation w/ family Pt more awake today and family reports she asked for water and answered a couple simple questions. They brought her dog in from home and pt was spontaneously petting her dog with her right hand. All Other Systems: Reviewed and Negative Objective Vital Signs Date Time Temp Pulse Resp B/P (MAP) Pulse Ox O2 Delivery O2 Flow Rate FiO2 01/12/17 16:10 Nasal Cannula 2.0 01/12/17 07:45 Nasal Cannula 01/12/17 00:00 Nasal Cannula 2.0 Physical Exam General Appearance: no apparent distress, + thin Eyes: normal inspection ENT: + pertinent finding (pharynx with dry MM) Respiratory/Chest: no respiratory distress, no accessory muscle use Skin: normal color Assessment and Plan 79-year-old female with past medical history of diabetes, hypertension, DVT, Adriana- Vargas syndrome , chronic smoker was brought to the ER via ALS after she was found unresponsive. Her last normal time was at 11 PM last night. Her son had checked on her this morning but she was sleeping so he went to check on her later in the evening at which time she would not respond to verbal stimuli and hence was brought to the ER. 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 Chest x-ray was concerning for right perihilar opacity likely secondary to a mass or pneumonia or lymph nodes. A CT chest was ordered for further evaluation of the right perihilar opacity concerning for a lung mass but she was noted to have a type A thoracic aortic dissection extending from the aortic root to the level of the renal arteries. The dissection extended into the arch vessels with a dissection flap visible in the bilateral common carotid arteries. The family was notified of the CT chest results and they wanted an opinion by cardiothoracic surgery. A call was placed to [place] [facility] who recommended that she would not be a candidate for surgery considering her age and stroke findings on the CT. This was relayed back to the family and after explaining her current prognosis, decision was made by the power of senior trial attorney ,her daughter to initiate comfort measures only. She would be admitted to [facility] [place] for comfort measures only. Initially was minimally responsive, now more awake.Gurgling with sips of water, at high risk for aspiration, should remain NPO With flaccid paresis on left side, very poor prognosis. Appears comfortable though. Appearance of decreased blood flow to stomach on CT abd secondary to dissection of aorta-at risk for gastric perforation and pain from that with sepsis. At high risk for brainstem herniation from cerebral edema, also for hemorrhagic conversion of CVA - Pain control with morphine every 3 hours as needed - Palliative consult - Scopolamine patch,glycopyrrolate drops as needed -continue supportive care DO NOT RESUSCITATE
[2017-01-13] MEDS: MoRPHine SULFATE 4 MG/ML 1 ML CARP\\VIAL IV PRN (01:05)
[2017-01-13] MEDS: CHECK SCOPOLAMINE PATCH PLACEMENT SCH ×2 (07:36)
[2017-01-13] MEDS ORDERED: [UNRECOGNIZED DRUG - CODE] SL (09:36)
[2017-01-13] MEDS ORDERED: ATV5 SL (09:36)
[2017-01-13] MEDS ORDERED: SCOP1.5D2 TD (09:36)
--- NOTE | 2017-01-13 09:47 | Discharge Instructions ---
Discharge Instructions Date of Service Jan 13, 2017. Admission Reason for Admission: Altered Mental Status, Stroke Discharge Discharge Diagnosis / Problem: Acute CVA, Aortic dissection Discharge Goals Goal(s): Decrease discomfort, Diagnostic testing Activity Recommendations Activity Limitations: as noted below Exercise/Sports Limitations: rest today . Instructions / Follow-Up Instructions / Follow-Up You were admitted and found to have a very large stroke in the brain that was caused from a large aortic dissection. You are being discharged to home with Home Hospice and comfort care. No follow up with any doctors is necessary. Home Hospice nurses will be coming to your house today. Current Hospital Diet Patient's current hospital diet: Discharge Diet Recommended Diet: N/A (oral swabs for comfort as needed) Procedures Procedures Performed: CT head CT Chest/Abdomen/Pelvis Chest xray Pending Studies Studies pending at discharge: yes List of pending studies: Final Blood CUltures-negative to date Laboratory Results Hemoglobin A1c Test 01/10/17 18:54 Range/Units Estimated Average Glucose 140 mg/dl Hemoglobin A1c 6.5 H 4.5-5.6 % Medical Emergencies . Who to Call and When: Medical Emergencies: If at any time you feel your situation is an emergency, please call 911 immediately. . Non-Emergent Contact Non-Emergency issues call your: Primary Care Provider (Hospice Agency) Call Non-Emergent contact if: your pain is not controlled, your pain is worsening, you have any medication questions . . "Provider Documentation" section prepared by Aure Prakash. . VTE Core Measure Inpt VTE Proph given/why not?: Refusal of treatmnt by pt (comfort measures) [place] Drug Monitoring Program Search Results: patient reviewed within database, no issues identified
[2017-01-13] MEDS ORDERED: NURSING VERBAL MED ORDER ONE (10:00)
[2017-01-13 10:10] VITALS: BP 120/74; PULSE 111; TEMP 36.4; O2SAT 97
[2017-01-13] MEDS ORDERED: MoRPHine SULFATE 2 MG/ML CARP IV SCH (10:30)
--- NOTE | 2017-01-13 22:49 | Discharge Summary ---
Discharge Summary Date of Service Jan 13, 2017. 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 No acute hemorrhage. Minimal mass effect. Chest xray: 1. Right perihilar mass-like opacity. Given the clinical history, this could reflect pneumonia however a mass or lymphadenopathy could appear similar. Short-term radiographic follow up is recommended. 2. Suspected left perihilar opacity which can be assessed on subsequent chest radiographs. 3. Mild interstitial thickening. This could reflect mild pulmonary edema or interstitial lung disease. CT OF THE CHEST WITH IV CONTRAST CLINICAL HISTORY: Abnormal chest x-ray. Right perihilar mass. COMPARISON STUDY: Chest x-ray dated 01/10/2017 TECHNIQUE: Following the IV administration of 118 mL of Optiray-320, CT of the thorax was performed from the thoracic inlet to the lung bases. Images are reviewed in the axial, sagittal, and coronal planes. IV contrast was administered without complication. CT DOSE: 806.03 mGy.cm FINDINGS: Thyroid: Imaged portions of the thyroid gland are normal in appearance. Thoracic aorta: There is a type A thoracic aortic dissection which extends to the level of the aortic root. The dissection extends to visualize level of the upper abdominal aorta. There is compression of the true lumen within the lower thoracic aorta. The dissection extends into the left subclavian artery, left common carotid artery, and right innominate artery. Dissection flaps are visualized within both common carotid arteries. There is a small based on a hematoma. There is a trace pericardial effusion. Pulmonary vasculature: The pulmonary trunk is normal in caliber. There are no central filling defects identified to suggest pulmonary embolus. Note that this examination was not protocoled for the evaluation of pulmonary emboli. HEART: The heart is the upper limits of normal in size. There is a trace pericardial effusion. There are coronary artery calcifications. Lungs and pleural spaces: There is pulmonary emphysema. There are dependent atelectatic changes. The study is somewhat limited due to respiratory motion artifact. There is underlying pulmonary fibrotic change. There is a calcified right apical granuloma. Mediastinum: There is a mildly enlarged 12 mm precarinal lymph node. There is a small mediastinal hematoma. Amanda: Hilar lymph nodes are the upper limits of normal in size. Axilla: There is no evidence of pathologic axillary lymphadenopathy Upper abdomen: There is intra and extrahepatic biliary ductal dilatation. Skeletal structures: There is a prominent T7-8 disc osteophyte complex. IMPRESSION: 1. Type A thoracic aortic dissection extending from the aortic root to the visualized level of the upper abdominal aorta. The dissection extends into the 3 arch vessels. Dissection flaps are visualized within both common carotid arteries. The right coronary artery likely arises from the false lumen. There is compression of the true lumen within the distal thoracic aorta. There is a small mediastinal hematoma. CT ABD/PELVIS IV CONTRAST ONLY CLINICAL HISTORY: Lower abdominal pain. Bloody stools. Thoracic aortic dissection. COMPARISON STUDY: 02/24/2016 TECHNIQUE: Following the IV administration of 91 mL of Optiray-320, CT scan of the abdomen and pelvis was performed from the lung bases to the proximal femurs. Images are reviewed in the axial, sagittal, and coronal planes. IV contrast was administered without complication. CT DOSE: FINDINGS: Lower chest: There is a trace pericardial effusion. There are bibasal atelectatic changes. Liver: There is persistent intra and extrahepatic biliary ductal dilatation. There is a 14 mm enhancing subcapsular nodule within the anterior left lobe. There is a suspected filling defect with thin the common hepatic duct. Gallbladder: Not visualized and presumed surgically absent Spleen: Normal in size and attenuation. Pancreas: Unremarkable. Adrenal glands: There is bilateral adrenal gland thickening similar to the prior study Kidneys: There are stable renal cysts the largest of which is located on the left measuring 15 mm. There is no hydronephrosis. Bowel: There are no transition zones to indicate bowel obstruction. There is colonic diverticulosis. There are no acute peridiverticular inflammatory changes. There is diffuse gastric wall thickening. Peritoneum: There is no intraperitoneal free air or abdominal ascites. Vasculature: There is a dissection of the lower thoracic and upper abdominal aorta. The celiac artery appears to arise from the true lumen. The superior mesenteric artery also arises from the true lumen. There is extensive atheromatous calcification at the level of the renal artery origins. The dissection flap is not visualized distal to the renal arteries. Adenopathy: None. Pelvic viscera: The bladder is decompressed secondary to a Chow catheter. The uterus appears surgically absent. Skeletal structures: No destructive osseous lesions are seen. IMPRESSION: 1. Aortic dissection extends to the level of the renal arteries. The kidneys enhance normally. The superior mesenteric and celiac arteries appear to arise from the true lumen 2. Gastric wall thickening with abnormally diminished gastric enhancement visualized on the accompanying chest CT. The right gastric artery likely arises from the false lumen of the aortic dissection 3. No evidence of bowel obstruction. No evidence of free air 4. Intra and extrahepatic biliary ductal dilatation. Filling defect within the common hepatic duct. 5. 14 mm enhancing subcapsular nodule within the anterior left lobe of the liver Medication Reconciliation New Medications: Lorazepam (Lorazepam) 0.5 Mg Tab 0.5 MG SL Q4H for Anxiety/Agitation, #10 TAB Morphine Sulfate (Morphine Sulfate) 2 Mg/0.1 Ml Soln 2 MG SL Q1H PRN for Pain, #1 BTL Scopolamine (Transderm-Scop) 1 Mg/3 Days Dis 1.5 MG TD Q3D@0600, #1 BOX Discontinued Medications: Calcium Carbonate-Vitamin D (Calcium 600+D3) 1 Tab Tab 1 TAB PO DAILY Glipizide (Glucotrol) 10 Mg Tab 10 MG PO BID, TAB Multivitamins (Daily Keven) 1 Tab Tab 1 TAB PO DAILY for 1 Day, TAB Octreotide Acetate (Sandostatin [place]) 30 Mg Kit 30 MG IM Q3WK Pantoprazole (Pantoprazole Sodium) 40 Mg Tab 120 MG PO QAM, #150 Pantoprazole (Protonix) 40 Mg Tab 80 MG PO QPM, #30 TAB Simvastatin (Simvastatin) 80 Mg Tab 80 MG PO HS for 1 Day, TAB Tramadol HCl (Tramadol HCl) 50 Mg Tab 100 MG PO TID PRN for Pain for 15 Days, TAB Discharge Exam Resting comfortably, no agitation or evidence of pain. Minimally responsive, could not obtain ROS Review of Systems: Constitutional: No fever Physical Exam: General Appearance: no apparent distress, + thin Eyes: normal inspection, PERRL, sclerae normal ENT: + pertinent finding (OP with dry MM) Neck: trachea midline, + pertinent finding (carotid bruits bilat) Respiratory/Chest: lungs clear, no respiratory distress, no accessory muscle use Cardiovascular: + tachycardia (and regular), + systolic murmur (2/6 PRIMO), + pertinent finding (trace pitting edema in legs) Abdomen / GI: non tender, soft, no organomegaly, no pulsatile mass, + abnormal bowel sounds (hypoactive) Extremities: normal inspection, normal capillary refill (and 2+ DP pulses, cap refill tin all toes < 2 sec) Neurologic/Psychiatric: + pertinent finding (obtunded) Skin: normal color Hospital Course 79-year-old female with past medical history of diabetes, hypertension, DVT, Adriana- Vargas syndrome , chronic smoker was brought to the ER via ALS after she was found unresponsive. Her last normal time was at 11 PM last night. Her son had checked on her this morning but she was sleeping so he went to check on her later in the evening at which time she would not respond to verbal stimuli and hence was brought to the ER. 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 Chest x-ray was concerning for right perihilar opacity likely secondary to a mass or pneumonia or lymph nodes. A CT chest was ordered for further evaluation of the right perihilar opacity concerning for a lung mass but she was noted to have a type A thoracic aortic dissection extending from the aortic root to the level of the renal arteries. The dissection extended into the arch vessels with a dissection flap visible in the bilateral common carotid arteries. The family was notified of the CT chest results and they wanted an opinion by cardiothoracic surgery. A call was placed to [place] [facility] who recommended that she would not be a candidate for surgery considering her age and stroke findings on the CT. This was relayed back to the family and after explaining her current prognosis, decision was made by the power of hearing care practitioner ,her daughter to initiate comfort measures only. She would be admitted to Med Surg for comfort measures only. Initially was minimally responsive, now more awake.Gurgling with sips of water, at high risk for aspiration, should remain NPO With flaccid paresis on left side, very poor prognosis. Appears comfortable though. Appearance of decreased blood flow to stomach on CT abd secondary to dissection of aorta-at risk for gastric perforation and pain from that with sepsis. At high risk for brainstem herniation from cerebral edema, also for hemorrhagic conversion of CVA - Pain control with morphine every 3 hours as needed was provided and will dc to home with Hospice on Roxanol drops prn, Ativan SL prn - Scopolamine patch,glycopyrrolate drops as needed DO NOT RESUSCITATE Total Time Spent: Greater than 30 minutes This includes examination of the patient, discharge planning, medication reconciliation, and communication with other providers. Discharge Instructions Please refer to the electronic Patient Visit Report (Discharge Instructions) for additional information. Additional Copies To Eldon Valdivia M.D.
[2017-01-14] MEDS ORDERED: SCOPOLAMINE 1.5 MG TDSY TD SCH (06:00)
== END 2017-01-13 14:19 | disposition hospice, home (50) | DRG 64 ==
LOC: EDBD 19:20 → C.EDC 19:21 → C.4E 22:47 → ENRESERV 23:04 → CANRESERV 23:04 → C.4E 01-11 01:16 → UNDOADMIN 01-11 01:16 → EDBEDREQSVC 01-11 01:22 → EDBEDREQ 01-11 01:22 → ENRESERV 01-11 01:35
PROVIDERS: ADMIT Family Medicine; ATTEND Family Medicine
DX: I63.511 Cerebral infarction due to unspecified occlusion or stenosis of right middle cerebral artery (principal); I71.01 Dissection of thoracic aorta; I69.354 Hemiplegia and hemiparesis following cerebral infarction affecting left non-dominant side; E16.4 Increased secretion of gastrin; E11.9 Type 2 diabetes mellitus without complications; Z86.718 Personal history of other venous thrombosis and embolism; F17.200 Nicotine dependence, unspecified, uncomplicated; Z83.3 Family history of diabetes mellitus; Z51.5 Encounter for palliative care; Z66 Do not resuscitate